=== PATIENT | female | born 1955 | race Caucasian/White ===

== ENCOUNTER 2016-11-24 20:07 | Emergency (ER) | payer OTHER ==
[~2016-11-24 20:07] MED LIST: ACTOS45 MG; DYAZIDE 37.5/251 CAP; ESTRACE1 MG; K-DUR20 MEQ
[2016-11-24] MEDS ORDERED: GLUCOPHAGE500 M3 PO (20:38)
[2016-11-24] MEDS ORDERED: MAGNESIUM OXID400 M1 PO (20:38)
[2016-11-24] MEDS ORDERED: AVAPRO150 M1 PO (20:39)
[2016-11-24] MEDS ORDERED: ESTRACE1 M3 (20:39)
[2016-11-24] MEDS ORDERED: ASPIR 8181 M1 PO (20:40)
[2016-11-24] MEDS ORDERED: SYNTHROID50 MC1 PO (20:40)
[2016-11-24] MEDS ORDERED: FISH OIL 11000 MG/CA PO (20:41)
[2016-11-24] MEDS ORDERED: FOLGARD TABLET1 EAC1 PO (20:41)
[2016-11-24] MEDS ORDERED: LEVEMIR100 UNITS/ SC (20:42)
[2016-11-24 22:20] LABS: BASO % 0.4 % (0-2); EOS % 2.5 % (0-7); HCT-HEMATOCRIT 39.2 % (34.0-49.0); IMMATURE GRANULOCYTES ABSOLUTE 0.04 tho/cmm (0-0.03); IMMATURE GRANULOCYTES PERCENT 0.3 % (0-0.3); LYMPH % 56.1 % (20-45); MCH (MEAN CORPUSCULAR HGB) 29.6 pg (28.0-32.0); MCHC MEAN CORPUSCULAR HGB CONC 33.2 % (32.0-36.0); MCV (MEAN CELL VOLUME) 89.3 fl (82.0-96.0); MEAN PLATELET VOLUME 9.9 cmc (9.4-12.4); NEUTROPHIL ABSOLUTE COUNT 5.5 tho/cmm (1.6-8.0); NEUTROPHIL-AUTOMATED 5.5 tho/cmm (1.6-8.0); NEUTROPHILS % 34.7 % (40-80); PLATELET COUNT 435 tho/cmm (150-450); RED BLOOD COUNT 4.39 mil/cmm (4.00-5.20); RED CELL DISTRIBUTION WIDTH 13.9 % (12.4-16.4); WHITE BLOOD COUNT 15.8 tho/cmm (4.0-10.0)
[2016-11-24 22:30] LABS: BASO ABSOLUTE COUNT 0.1 tho/cmm (0.0-0.2); EOSINOPHIL ABSOLUTE COUNT 0.4 tho/cmm (0.0-0.7); LYMPH ABSOLUTE COUNT 8.9 tho/cmm (0.8-4.5)
[2016-11-24 22:40] LABS: ALB/GLOB RATIO 0.8 (0.8-2.0); ALBUMIN 3.4 g/dl (3.5-5.0); ALKALINE PHOSPHATASE 64 U/L (33-138); ALT/SGPT 22 U/L (12-78); ANION GAP 14 mmol/L (0-20); AST/SGOT 15 U/L (10-40); BILIRUBIN,TOTAL 0.3 mg/dl (0-1.5); BLOOD UREA NITROGEN 12 mg/dl (6-24); CALCIUM 9.3 mg/dl (8.5-10.5); CARBON DIOXIDE-VENOUS 28 mmol/L (22-32); CHLORIDE 101 mmol/l (96-110); CREATININE 0.84 mg/dl (0.50-1.10); GLUCOSE 271 mg/dL (70-110); POTASSIUM 3.7 mmol/L (3.7-5.1); SODIUM 139 mmol/L (135-145); eGFR VALUE FOR BLACK 87 mL/Min
[2016-11-25] MEDS ORDERED: NORCO 5-325 TA1 EACH PO (00:13)
== END 2016-11-25 00:24 ==
LOC: EDMED 20:07
PROVIDERS: Physician Assistant
DX: S29.9XXA Unspecified injury of thorax, initial encounter (principal); E11.9 Type 2 diabetes mellitus without complications; I10 Essential (primary) hypertension; E03.9 Hypothyroidism, unspecified; E78.5 Hyperlipidemia, unspecified; Z79.4 Long term (current) use of insulin; Z79.899 Other long term (current) drug therapy; W01.0XXA Fall on same level from slipping, tripping and stumbling without subsequent striking against object, initial encounter
CPT/HCPCS: J2270; J7030; Q9967